=== PATIENT | male | born 1990 | race Caucasian/White ===

== ENCOUNTER 2018-04-21 05:41 | Emergency (ER) | payer BC ==
[~2018-04-21] VITALS: Ht 177.8 cm; Wt 95.3 kg
[2018-04-21 06:00] VITALS: BP 156/75
--- NOTE | 2018-04-21 06:27 | PHYS DOC ---
Past Medical History Past Medical History: No Pertinent History Past Surgical History: No Surgical History Additional Information: 1 PPD Alcohol Use: None Drug Use: None Adult General Chief Complaint Chief Complaint: COUGH HPI HPI Patient is a 27 year old male who presented to ER today for evaluation of cough ,, sore throat for one week. Patient denies any fever or chill. Patient denies any neck pain, no headache. Patient denies any abdominal pain, no nausea or vomiting. Review of Systems Review of Systems Constitutional: Denies fever or chills [] Eyes: Denies change in visual acuity, redness, or eye pain [] HENT: Positive for nasal congestion or sore throat [] Respiratory: Positive for cough, NO shortness of breath [] Cardiovascular: No additional information not addressed in HPI [] GI: Denies abdominal pain, nausea, vomiting, bloody stools or diarrhea [] : Denies dysuria or hematuria [] Musculoskeletal: Denies back pain or joint pain [] Integument: Denies rash or skin lesions [] Neurologic: Denies headache, focal weakness or sensory changes [] Endocrine: Denies polyuria or polydipsia [] All other systems were reviewed and found to be within normal limits, except as documented in this note. Allergies Allergies Allergies Coded Allergies Type Severity Reaction Last Updated Verified No Known Drug Allergies 04/21/18 No Physical Exam Physical Exam Constitutional: Well developed, well nourished, no acute distress, non-toxic appearance. [] HENT: Normocephalic, atraumatic, bilateral external ears normal, oropharynx moist, BILATERAL NASAL NARE CONGESTION WITH ERYTHEMA, ERYTHEMATOUS OROPHARYNGEAL AREA, UVULA MIDLINE, Eyes: PERRLA, EOMI, conjunctiva normal, no discharge. [] Neck: Normal range of motion, no tenderness, supple, no stridor. [] Cardiovascular:Heart rate regular rhythm, no murmur [] Lungs & Thorax: Bilateral breath sounds clear to auscultation [] Abdomen: Bowel sounds normal, soft, no tenderness, no masses, no pulsatile masses. [] Skin: Warm, dry, no erythema, no rash. [] Back: No tenderness, no CVA tenderness. [] Extremities: No tenderness, no cyanosis, no clubbing, ROM intact, no edema. [] Neurologic: Alert and oriented X 3, normal motor function, normal sensory function, no focal deficits noted. [] Psychologic: Affect normal, judgement normal, mood normal. [] Current Patient Data Vital Signs Vital Signs Date Time Temp Pulse Resp B/P (MAP) Pulse Ox O2 Delivery O2 Flow Rate FiO2 04/21/18 06:00 98.0 104 20 156/75 (102) 97 Room Air 98.0 Lab Values Laboratory Tests Test 04/21/18 06:16 Group A Streptococcus Rapid Negative (NEGATIVE) EKG EKG [] Radiology/Procedures Radiology/Procedures CHEST XRAY: NO ACUTE DISEASE [] Course & Med Decision Making Course & Med Decision Making Pertinent Labs and Imaging studies reviewed. (See chart for details) [] Dragon Disclaimer Dragon Disclaimer This electronic medical record was generated, in whole or in part, using a voice recognition dictation system. Departure Departure Impression: Primary Impression: Bronchitis Disposition: 01 HOME, SELF-CARE Condition: STABLE Referrals: NO PCP (PCP) FOLLOW UP WITH YOUR DOCTOR NEEDED IN 2 DAYS IF NOT IMPROVED. Patient Instructions: Acute Bronchitis Scripts Prednisone (PREDNISONE) 20 Mg Tablet 1 TAB PO DAILY, #10 TAB Prov: RAMON REED DO 04/21/18 Azithromycin (ZITHROMAX) 250 Mg Tablet 1 PKG PO UD, #6 TAB Prov: RAMON REED DO 04/21/18 RAMON REED DO Apr 21, 2018 06:27
[2018-04-21] MEDS ORDERED: PRED20TA PO (06:48)
[2018-04-21] MEDS ORDERED: AZIT250T PO (06:48)
--- NOTE | 2018-04-21 08:00 | RAD ---
Single view of the chest. 04/21/2018 6:11 AM Indication: cough x 1 week Comparison: None available Findings: There is no focal consolidation. There is no pleural effusion or pneumothorax. The cardiomediastinal silhouette and pulmonary vasculature are within normal limits. No acute osseous abnormalities are seen. Impression: No evidence of acute cardiopulmonary process. Electronically signed by: Kingston Styles MD (04/21/2018 7:56 AM) [id number]
== END 2018-04-21 06:52 | disposition home or self-care (01) ==
LOC: ER 05:41
DX: J40 Bronchitis, not specified as acute or chronic (principal); F17.200 Nicotine dependence, unspecified, uncomplicated
CPT/HCPCS: 71045; 87070; 87880; 99285-25